=== PATIENT | female | born 1995 | race Caucasian/White ===

== ENCOUNTER 2020-07-11 13:41 | Emergency (ER) | payer OTHER, SELFPAY ==
[2020-07-11 13:46] VITALS: BP 168/79; PULSE 126; RESP 16; TEMP 36.7; O2SAT 99
--- NOTE | 2020-07-11 14:00 | W.ED.GENAD ---
Discharge Plan Disposition Patient Disposition: HOME Condition: Improving Discharge Details Clinical Impression: Back pain Primary Care Provider: Unknown,Unknown ED Provider: Gage [facility] Home Meds and New Rx's Prescriptions: New cephalexin 500 mg capsule 500 mg PO TID 7 Days Qty: 21 RF: 0 Continued COVID-19 vacc,mRNA(Moderna)-PF 100 mcg/0.5 mL suspension 0.5 ml IM ONCE Qty: 0.5 RF: 0 norethindrone ac-eth estradiol [07/18 (21)] 1-20 mg-mcg Tablet 1 tab PO DAILY RF: 0 Discharge Instructions Instructions: Back Pain (ED) Additional Instructions: We will ask our care management team to arrange a follow-up for you in [facility] clinic at [facility] or [facility]. Please take Keflex as prescribed. Light duty at work for 1 week. Please follow-up with physical therapy. May use Tylenol and/or ibuprofen as needed for pain. Return to the ER if you have a fever, vomiting, new abdominal pain, or any other acute concerns. 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 She presents for ongoing back pain despite recent treatment for urinary tract infection with Macrobid and 3 days of ciprofloxacin. She is afebrile, her pulse was initially elevated, with flank/back pain on palpation during exam. Differential diagnosis includes benign back strain, UTI, pyelonephritis. She also reports a history of pelvic venous congestion. IV placed, screening labs and urinalysis obtained, patient referred for CT images. CBC is reassuring, note of elevated platelets at 440, lactic acid normal. Chemistries normal, LFTs unremarkable, urine without evidence of persistent infection. CT shows pelvic venous congestion. No other acute findings. On reexamination there is some tenderness of the musculature of the back, somewhat augmented by spinal twist. Will consider either partially treated urinary tract infection versus musculoskeletal strain. Discussed with her that I do feel it is reasonable to pursue a course of Keflex. We will have her follow-up with [facility]. I will refer her for physical therapy and have her on light duty at work for 1 week. She is stable and appropriate for discharge to home. HPI General Mode of arrival: ambulatory. Date/Time Provider Initiated Documentation: 07/11/20 13:42. Limitations to Documentation: no limitations. Information obtained by: patient. History of Present Illness 24 year old F presents to the emergency department with the chief complaint of Back pain and urine symptoms, described as moderate, Quality is described as dull, and is localized to the pelvis. Patient reports no radiation. Patient started experiencing this day(s) and it has been intermittent. No relieving factors improve symptom(s), No exacerbating factors reported . Patient notes denies fever/chills and nausea/vomiting. Patient did receive the following treatments prior to arrival, none Related Data Home Medications Medication Instructions Recorded Confirmed cephalexin 500 mg PO TID 7 Days #21 cap 07/11/20 norethindrone ac-eth estradiol 1 tab PO DAILY 07/11/20 07/11/20 [07/18 ()] Previous Rx's Medication Instructions Recorded cephalexin 500 mg PO TID 7 Days #21 cap 07/11/20 Allergies Allergy/AdvReac Type Severity Reaction Status Date / Time No Known Allergies Allergy Unverified 07/11/20 13:50 General Stated Complaint: Urinary PAUL: 3 Review of Systems Narrative: No vaginal discharge or bleeding. No new sexual partners. Completed Macrobid and ciprofloxacin for UTI 2 weeks ago PFSH Social History Smoking/Tobacco Use Status: Never Smoking risk assessment performed?: Yes Alcohol Intake: current Alcohol Intake frequency: a few times a month Do you feel safe at home: Yes Do you feel safe in your relationship?: Yes Exam Narrative Exam Narrative: GEN: awake, alert, oriented 3. Pleasant, well groomed, interactive. HEAD: Normocephalic, atraumatic ENT: Mucous membranes moist, oropharynx unremarkable, External ear exam unremarkable EYES: PERRL, EOMI NECK: Full ROM, no RAJESH, no menigismus CHEST/RESP: Nontender, clear to auscultation bilateral, no wheeze/rhonchi/rales CARDIOVASCULAR: Regular and tachycardic, no murmur, rub raghav. 2+ Rad pulse bilateral ABDOMEN: Soft, mild suprapubic tenderness, no rebound, no mass. +Bowel sounds. Left flank tender to percussion EXT: Full ROM, no edema, no rash Neuro: Grossly normal neurologic exam, conversant, interactive. Psych: Speech fluent, thoughts congruent, affect normal Course Vital Signs Vital signs: Vital Signs Temperature 36.7 C 07/11/20 13:46 Pulse 126 H 07/11/20 13:46 Respiratory Rate 16 07/11/20 13:46 Blood Pressure 168/79 H 07/11/20 13:46 Pulse Oximetry 99 07/11/20 13:46 Temperature 36.7 C 07/11/20 13:46 Temperature Source Temporal Artery Scan 07/11/20 13:46 Pulse 126 H 07/11/20 13:46 Respiratory Rate 16 07/11/20 13:46 Respiratory Effort 07/11/20 13:52 Blood Pressure 168/79 H 07/11/20 13:46 Blood Pressure Position Sitting 07/11/20 13:46 Pulse Oximetry 99 07/11/20 13:46 Oxygen Delivery Method Room Air 07/11/20 13:46 Oxygen Flow Rate 0 07/11/20 13:46 Pain Level 5 07/11/20 13:46 Comment 07/11/20 13:46
[2020-07-11 14:11] LABS: Bilirubin Negative (Negative); Blood Negative (Negative); Clarity Clear (Clear); Glucose Negative (Negative); Ketones Negative (Negative); Leukocyte Esterase Negative (Negative); Nitrite Negative (Negative); Urobilinogen 0.2 EU/dL (Up TO 0.2)
[2020-07-11] MEDS: Ketorolac 15 MG/ML VIAL IVP (14:27)
[2020-07-11] MEDS: Normal Saline 1,000 ML 1000 ML IV (14:28)
[2020-07-11 14:29] LABS: Abs Immature Grans 0.03 10^3/uL (0.0-0.06); Absolute Basophil Count 0.03 10^3/uL (0.0-0.2); Absolute Eosinophil Count 0.04 10^3/uL (0.0-0.7); Absolute Lymphocyte Count 3.57 10^3/uL (1.2-3.4); Absolute Monocyte Count 0.45 10^3/uL (0.1-0.8); Absolute Neutrophil Count 6.21 10^3/uL (1.2-6.7); Basophils % 0.3; Eosinophils % 0.4; HCT 41.2 % (36.0-46.0); HGB 13.8 g/dL (11.2-15.7); Immature Grans % 0.3; Lactate 1.4 mmol/L (0.6-1.4); Lymphocytes % 34.6; MCH 30.3 pg (27.0-33.0); MCHC 33.5 % (32.0-36.0); MCV 90.4 fL (80-95); MPV 10.1 fL (8.0-11.0); Monocytes % 4.4; Nucleated RBC 0 %; Platelet Count 440 10^3/uL (130-400); RBC 4.56 10^6/uL (3.93-5.22); RDW 12.5 % (11.7-14.6); RDW-SD 41.7 fL; WBC 10.33 10^3/uL (4.4-10.8)
--- NOTE | 2020-07-11 14:30 | DI.CT_ITS ---
EXAM: CT ABDOMEN PELVIS W CLINICAL HISTORY: L flank pain, s/p uti/abx. TECHNIQUE: Imaging Protocol: Axial computed tomography images with coronal and sagittal reformatted images were created and reviewed CONTRAST MATERIAL: Intravenous: Omnipaque 100cc Oral: None COMPARISON: No exams were available for comparison FINDINGS: VISUALIZED LUNG BASES: No nodules nor pleural effusions evident. ABDOMEN: There is no ascites. LIVER: There are no obvious focal hepatic lesions evident . GALLBLADDER/BILIARY: No obvious gallbladder pathology. CBD is not dilated. PANCREAS: No evidence of pancreatic mass nor dilatation of the pancreatic duct. SPLEEN: Spleen is not enlarged. No obvious intrasplenic lesions. Splenic and portal veins are paten t. ADRENALS: There are no significant adrenal masses. KIDNEYS:No cysts evident. No solid renal masses. No calculi nor hydronephrosis.. ABDOMINAL AORTA: Abdominal aorta is not enlarged and there is no mzxtnazpdgzavhq-pdky-urjelb adenopat hy. ABDOMINAL WALL/GI: No evidence of significant anterior abdominal wall hernia. No bowel obstruction. PELVIS: GI: No evidence of appendicitis.No evidence of sigmoid diverticulitis. LYMPH NODES: There is no intrapelvic nor inguinal adenopathy. REPRODUCTIVE: There are dilated veins both sides the uterus, more so on the left side in these drain into a dilated left gonadal vein which itself drains into the preaortic left renal vein to the left o f center. URINARY BLADDER: No calculi nor obvious masses evident OSSEOUS: No significant osseous lesions. IMPRESSION: 1. No significant renal findings. 2. Dilated periuterine veins, as described above. Correlation a clinical history of pelvic congestio n symptomatology is recommended. 3. No appendicitis. No diverticulitis. No free fluid. 4. Visualized lung bases are clear. RADIATION DOSE DELIVERED: 526.98mGy.cm Total DLP DATA REPOSITORY: All CT scans at this facility are submitted to the National Radiology Data Registry (NRDR) Dose Index Registry (DIR) with the [employer] (ACR). RADIATION OPTIMIZATION: All CT scans at this facility use at least one of these dose optimization te chniques: automated exposure control; mA and/or kV adjustment per patient size (includes targeted exa ms where dose is matched to clinical indication); or iterative reconstruction.
[2020-07-11 14:52] LABS: ALT 18 U/L (14-59); AST 14 U/L (15-37); Albumin 3.9 g/dL (3.4-5.0); Alkaline Phosphatase 46 U/L (46-116); Anion Gap 9.4 mmol/L (3-11); BUN 11 mg/dL (7-18); Bilirubin, Total 0.5 mg/dL (0.2-1.0); CO2 24.6 mmol/L (21.0-32.0); Chloride 105 mmol/L (98-107); Glucose 93 mg/dL (74-106); Sodium 139 mmol/L (136-145); Total Protein 8.1 g/dL (6.4-8.2)
[2020-07-11 16:38] VITALS: BP 139/88; PULSE 105; RESP 18; TEMP 36.8; O2SAT 100
--- NOTE | 2020-07-11 16:49 | NUR.NOTE ---
sent to care management for referal to [facility] director of strategic sourcing if not asvailable here at [facility] director of strategic sourcing and faxed Trevor Mckenna Note:
--- NOTE | 2020-07-12 11:03 | CMPROGNOTE_ITS ---
- If Service Date Differs Date of service: 07/12/20 Time of Service: 11:03 Care Management Progress Note Sangeeta is seen in the ED on 07/11/20 for pelvic congestion. At the request of Dr. Heart, ED provider, EDITH coordinates a referral to [facility] to assist Sangeeta in obtaining a follow up appointment and in establishing care with ob-gynecologist.
== END 2020-07-11 16:32 | disposition home or self-care (01) ==
PROVIDERS: Emergency Provider Emergency Medicine
DX: M54.5 Low back pain (principal); R30.0 Dysuria
CPT/HCPCS: 36415; 80053; 81025; 96361; 96374; 99285; 74177; 81003; 83605; 85025; 99284; J1885

== ENCOUNTER 2023-06-30 03:14 | Outpatient (CLI) | payer MEDICAID, SELFPAY ==
[2023-06-30 11:42] LABS: Panorama Kit Sent via Fed Ex
[2023-06-30 12:06] LABS: Abs Immature Grans 0.02 10^3/uL (0.0-0.06); Absolute Basophil Count 0.03 10^3/uL (0.0-0.2); Absolute Eosinophil Count 0.05 10^3/uL (0.0-0.7); Absolute Lymphocyte Count 2.25 10^3/uL (1.2-3.4); Absolute Monocyte Count 0.47 10^3/uL (0.1-0.8); Absolute Neutrophil Count 6.78 10^3/uL (1.2-6.7); Basophils % 0.3; Eosinophils % 0.5; HGB 12.7 g/dL (11.2-15.7); Immature Grans % 0.2; Lymphocytes % 23.4; MCH 30.8 pg (27.0-33.0); MCHC 33.4 % (32.0-36.0); MCV 92 fL (80-95); MPV 10.3 fL (8.0-11.0); Monocytes % 4.9; Neutrophils % 70.7; Platelet Count 346 10^3/uL (130-400); RBC 4.13 10^6/uL (3.93-5.22); RDW-SD 43.8 fL
[2023-07-01 10:26] LABS: Varicella IgG Antibody Positive (See Note)
[2023-07-01 10:27] LABS: Rubella IgG Ab (UVM) Positive (See Note)
[2023-07-01 11:43] LABS: Hepatitis B Surface Ag Negative (Negative)
[2023-07-01 12:27] LABS: HIV-1/2 Ag & Ab Screen Negative (Negative)
[2023-07-01 12:37] LABS: Hepatitis C Ab w Rflx HCV PCR Negative (Negative)
[2023-07-02 16:32] LABS: Syphilis IgG w/Reflex Nonreactive (Nonreactive)
[2023-07-13 12:53] LABS: Result Summary NEGATIVE; Specimen WB Whole Blood
== END 2023-06-30 03:15 | disposition home or self-care (01) ==
PROVIDERS: Visit Provider Advanced Practice Midwife
DX: Z34.91 Encounter for supervision of normal pregnancy, unspecified, first trimester
CPT/HCPCS: 36415; 81220; 81222; 86787; 86803; 86850; 86900; 86901; 87340; 87389; 85025; 86762; 86780

== ENCOUNTER 2023-06-30 11:18 | Outpatient (REF) | payer MEDICAID, SELFPAY ==
--- NOTE | 2023-06-30 11:00 | PAPFT_PTH ---
PATIENT: Sangeeta Reed LOC: [facility] U#:[id number] AGE/SX: 27/F ROOM: RE06/30/[address]: Gabriella House CNM : 1995 BED: DIS: 06/30/2023 SPEC #: [id number] RECD: 06/30/23 12:59 STATUS: RADHA RERonaldo #: [id number] ELISABETH: 06/30/23 11:[address]: Gabriella House DEPT: [facility] Cytology RECD BY: Deedee Parker ENTERED: 06/30/23 13:00 SP TYPE: PAPFT OTHR DR: Unknown,Unknown Tissues: 1 - CX/ENDOCX FOR PAP SMEARS Procedures: PAP THIN PREP/UVM Screening HPV DNA PROBE Comments: [id number] (HPV 16 & 18/45) (CHLAMYDIA/GC)
[2023-06-30 15:59] LABS: *AMPHETAMINES SCREEN URINE Negative (Negative); *BARBITURATES SCREEN URINE Negative (Negative); *BENZODIAZEPINES SCREEN URINE Negative (Negative); Cannabinoids THC Negative (Negative); Cocaine Screen,Urine Negative (Negative); METHADONE URINE SCREEN Negative (Negative); OPIATES URINE SCREEN Negative (Negative)
[2023-06-30 16:00] LABS: Tricyclic Antidepressants Negative (Negative)
[2023-07-01 15:44] LABS: Chlamydia Result Negative (Negative); GC Result Negative (Negative)
[2023-07-04 13:22] LABS: Buprenorphine Negative ng/mL (Cutoff: 5.0); Norbuprenorphine Negative ng/mL (Cutoff: 2.5)
== END 2023-06-30 11:19 | disposition home or self-care (01) ==
LOC: LBN 11:18
PROVIDERS: Visit Provider Advanced Practice Midwife
DX: Z34.91 Encounter for supervision of normal pregnancy, unspecified, first trimester (principal)
CPT/HCPCS: 80307; 80348; 87491; 87591; 88142; 87086; 87624

== ENCOUNTER → 2023-08-26 00:33 | Outpatient (CLI) | payer MEDICAID, SELFPAY ==
--- NOTE | 2023-08-26 07:45 | DI.US_ITS ---
Exam(s) US OB 2-3 TRIMESTER EXAM: US OB 2-3 TRIMESTER CLINICAL HISTORY: survey,z34.90. TECHNIQUE: Transabdominal obstetrical ultrasound performed. COMPARISON: US POCUS EXAM from 05/29/2023 FINDINGS: Number of fetuses: 1 position: VARIED heart rate: 134bpm Placental location: There is a grade 1 anterior placenta. The placental tip is 5.7 cm from the inter nal os. No evidence of previa. Amniotic fluid index: Amount of fluid is within normal limits. ANATOMICAL SURVEY: Within normal limits. BIOMETRIC DATA: BPD: 4.27cm, 18weeks 6days HC: 16.91cm, 19weeks 4days AC: 17.23cm, 22weeks 1day FL: 3.02cm, 19weeks 2days Cisterna magna: 3.1mm Cerebellum: 1.69cm Lateral ventricle: 0.5 cm EFW: 369.73g, 0.84lb, 92.2% Composite Age: 20weeks KAYKAY: 01/13/2024 Heart Rate: 134bpm ANATOMICAL SURVEY: Four-chambered heart: Unremarkable. RVOT: Unremarkable. LVOT: Unremarkable. Left-sided stomach: Unremarkable. urinary bladder: Unremarkable. Bilateral kidneys: Unremarkable. Three-vessel cord: Unremarkable. Cord insertion: Unremarkable. Posterior fossa: Unremarkable. ventricles: Unremarkable. nose/lips: Unremarkable. Palate: Unremarkable. spine: Unremarkable. Two arms and two legs: Unremarkable. IMPRESSION: 1. Single live intrauterine gestation as above. 2. Normal anatomic survey. DATA REPOSITORY:
== END ==
PROVIDERS: Visit Provider Advanced Practice Midwife
DX: Z34.92 Encounter for supervision of normal pregnancy, unspecified, second trimester (principal); Z3A.20 20 weeks gestation of pregnancy
CPT/HCPCS: 76805

== ENCOUNTER 2023-10-23 01:06 | Outpatient (CLI) | payer MEDICAID, SELFPAY ==
[2023-10-23 09:54] LABS: HCT 37.7 % (36.0-46.0); HGB 12.3 g/dL (11.2-15.7); MCH 31.9 pg (27.0-33.0); MCHC 32.6 % (32.0-36.0); MCV 98 fL (80-95); MPV 10.3 fL (8.0-11.0); Platelet Count 253 10^3/uL (130-400); RBC 3.86 10^6/uL (3.93-5.22); RDW 13.5 % (11.7-14.6); RDW-SD 48.1 fL; WBC 10.64 10^3/uL (4.4-10.8)
[2023-10-23 10:03] LABS: Glucose,1 Hr (Glucola) 84 mg/dL (80-140)
== END 2023-10-23 01:07 | disposition home or self-care (01) ==
LOC: LBO 01:06
PROVIDERS: Visit Provider Advanced Practice Midwife
DX: Z34.93 Encounter for supervision of normal pregnancy, unspecified, third trimester (principal)
CPT/HCPCS: 36415; 82950; 85027

== ENCOUNTER 2023-12-08 10:26 | Outpatient (CLI) | payer MEDICAID, SELFPAY ==
[2023-12-08 11:45] VITALS: BP 112/56; PULSE 81; TEMP 36.1
[2023-12-08 11:54] VITALS: BP 112/56; PULSE 74
--- NOTE | 2023-12-08 14:23 | W.OBNST ---
Date of service: 12/08/23 Time of Service: 14:23 NST Evaluation Reason for NST Reasons for Nonstress Test: LABOR Gestational Age Gestational Age in Weeks and Days: 34 Weeks and 4Days Test and Monitor Explained Test/Monitor Explained: Test Explained, Monitor Explained and Patient Verbalized Understanding Vital Signs Blood Pressure: 112/56 Pulse: 81 Temperature: 97 F Urine Results Urine Protein: Negative Urine Ketones: Negative Urine Glucose: Negative Urine Blood: Negative NST Information Date on Monitor: 12/08/23 Time on Monitor: 11:52 Date off Monitor: 12/08/23 Time off Monitor: 12:45 Total Time on Monitor: 53 NST Interventions: PO Hydration Contraction Frequency: 2-6 NST Evaluation Patient States Movement: Present FHR Baseline: 130 Variability: Moderate 6-25 bpm Accelerations: 15x15 Decelerations: None NST Results: Reactive Note Ultrasound Done: N/A. NST Note Note: Cvx closed and thick, no labor, nml vaginal mucous Advised to reduce work hours from 12 to 8 hrs at a time tylenol, rest, stretching for back pain NST Reviewed and Verified by: Gabriella House
[2023-12-08 14:24] VITALS: BP 112/56; PULSE 81; TEMP 36.1
== END 2023-12-08 13:05 ==
LOC: BCD 10:35 → OBS 10:37
PROVIDERS: Visit Provider Advanced Practice Midwife
DX: O47.03 False labor before 37 completed weeks of gestation, third trimester (principal); Z3A.34 34 weeks gestation of pregnancy
CPT/HCPCS: 59025

== ENCOUNTER 2023-12-17 16:25 | Outpatient (REF) | payer MEDICAID, SELFPAY | END 2023-12-17 16:26 | disposition home or self-care (01) | LOC: LBN 16:25 | PROVIDERS: Visit Provider Advanced Practice Midwife | DX: Z34.93 Encounter for supervision of normal pregnancy, unspecified, third trimester (principal); Z36.85 Encounter for antenatal screening for Streptococcus B; Z3A.35 35 weeks gestation of pregnancy | CPT/HCPCS: 87081 ==

== ENCOUNTER 2024-01-08 10:57 | Outpatient (CLI) | payer MEDICAID, SELFPAY ==
[2024-01-08 11:04] VITALS: BP 129/80; PULSE 75; TEMP 36.7
[2024-01-08 11:08] VITALS: BP 129/80; PULSE 75
--- NOTE | 2024-01-08 12:04 | PDOC.NST_ITS ---
Date of service: 01/08/24 Time of Service: 12:04 NST Evaluation Reason for NST Reasons for Nonstress Test: OTHER, SEE COMMENT Reason for NST Other: Rule out labor Gestational Age Gestational Age in Weeks and Days: 39 Weeks and 0Days Test and Monitor Explained Test/Monitor Explained: Test Explained and Monitor Explained Vital Signs Blood Pressure: 129/80 Pulse: 75 Temperature: 98.1 F Urine Results Urine Protein: Negative Urine Ketones: Negative Urine Glucose: Negative Urine Blood: Negative NST Information Date on Monitor: 01/08/24 Time on Monitor: 11:02 Date off Monitor: 01/08/24 Time off Monitor: 11:34 Total Time on Monitor: 32 NST Interventions: PO Hydration Contraction Frequency: q10-20 NST Evaluation Patient States Movement: Present FHR Baseline: 125 Variability: Moderate 6-25 bpm Accelerations: 15x15 Decelerations: None NST Results: Reactive Note Ultrasound Done: N/A. NST Note Note: cvx 1/60% posterior, firm, cephalic -3, intact membranes discharged home, f/up in 1 wk in [facility] sx labor reviewed NST Reviewed and Verified by: Gabriella House
[2024-01-08 12:05] VITALS: BP 129/80; PULSE 75; TEMP 36.7
== END 2024-01-08 11:45 ==
LOC: BCD 10:58 → OBS 11:02
PROVIDERS: Visit Provider Advanced Practice Midwife
DX: O47.1 False labor at or after 37 completed weeks of gestation (principal); Z3A.39 39 weeks gestation of pregnancy
CPT/HCPCS: 59025

== ENCOUNTER 2024-01-11 16:37 | Outpatient (CLI) | payer MEDICAID, SELFPAY ==
[2024-01-11 17:22] VITALS: BP 121/74; PULSE 76; TEMP 36.9
[2024-01-11 17:28] VITALS: BP 121/74; PULSE 76
--- NOTE | 2024-01-12 03:26 | W.OBNST ---
Date of service: 01/11/24 Time of Service: 19:00 NST Evaluation Reason for NST Reasons for Nonstress Test: OTHER, SEE COMMENT Reason for NST Other: DFM, early labor Gestational Age Gestational Age in Weeks and Days: 39 Weeks and 4Days Test and Monitor Explained Test/Monitor Explained: Test Explained, Monitor Explained and Patient Verbalized Understanding Vital Signs Blood Pressure: 121/74 Pulse: 76 Temperature: 98.4 F Urine Results Urine Protein: Negative Urine Ketones: Negative Urine Glucose: Negative Urine Blood: Negative NST Information Date on Monitor: 01/11/24 Time on Monitor: 17:27 Date off Monitor: 01/11/24 Time off Monitor: 18:14 Total Time on Monitor: 47 NST Evaluation Patient States Movement: Present FHR Baseline: 140 Variability: Moderate 6-25 bpm Accelerations: 15x15 Decelerations: None NST Results: Reactive Note Ultrasound Done: N/A. NST Note Note: cvx 1-2/90% anterior, vtx -2, intact membranes to home to rest, labor sx reviewed NST Reviewed and Verified by: Gabriella House
[2024-01-12 03:27] VITALS: BP 121/74; PULSE 76; TEMP 36.9
== END 2024-01-11 18:24 ==
LOC: BCD 16:37 → OBS 17:20
PROVIDERS: Visit Provider Advanced Practice Midwife
DX: O36.8130 Decreased fetal movements, third trimester, not applicable or unspecified (principal); Z3A.39 39 weeks gestation of pregnancy
CPT/HCPCS: 59025

== ENCOUNTER 2024-01-12 03:44 | Inpatient (IN) | payer MEDICAID, SELFPAY ==
[2024-01-12 03:30] VITALS: BP 129/73; PULSE 58; RESP 16; TEMP 36.6; O2SAT 100
--- NOTE | 2024-01-12 03:47 | HPE_ITS ---
Date of service: 01/12/24 Time of Service: 03:47 Assessment and Plan Assessment and plan (1) Uterine contractions: Status: Acute Assessment and plan: A: 28 yo G1 @ 39+4 wks, early labor, need for pain management GBS neg, Rh+, Rub/[place] Immune, intact membranes Category 1 tracing, low risk for SD & PPH Anxiety treated with sertraline P: Admit to BC, CBC, T&S Offered shower, nitrous, nubain for therapeutic rest, Expectant management, intermittent FHT per guidelines Additional comfort measures discussed, anticipate OB-HPI Labor/Delivery History of Present Illness Reason for Visit: Early labor at term Chief Complaint: Uterine Contractions (Contractions have continued through the night, unable to sleep, increasingly painful and frequent. No bleeding, no vomiting, no ROM.). KAYKAY Calculator Estimated Delivery Date Method Current WG Current Estimate 01/15/24 LMP (Certain) 39w 4d Other Estimates 01/14/24 Ultrasound #1 39w 5d History of Present Expected Delivery Route/Plan - CNM FOB/boyfriend - Alexandre Correa (first child) BG GBS negative Specific Issues/Plan 1. cfDNA result is low risk x5, female, CF screen-neg, declines AFP. 2. PAP result nml, HPV+, neg genotype 16, 18/45, discuss w/pt, repeat 1 yr. 3. Low back pain - [facility] 4. Tdap given 11/06/23 5. Heartburn - taking omeprazole PRN. Assessment: History Reviewed & Current Review of Systems Narrative: ROS completed and noncontributory other than HPI PFSH All Active Problems (Updated 01/12/24 @ 04:00 by Gabriella House) Uterine contractions (Acute) Low back pain (Acute) (Acute) Anxiety (Chronic) Rx Propranolol and Zoloft effective. Medical History (Updated 01/12/24 @ 04:00 by Gabriella House) Encounter for screening for other viral diseases Positive test 05/13/23, Confirmed at [facility]. Social History (Updated 05/13/23 @ 15:10 by Lisa Gilmore MD) Smoking/Tobacco Use Status: Never Smoking risk assessment performed?: Yes Alcohol Intake: current Alcohol Intake frequency: a few times a month Drug use: Never Household members: significant other and other Details: building a house with Alexandre Correa.Linepainter, [employer]. 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 Do you feel safe at home: Yes Do you feel safe in your relationship?: Yes History History 1 Para 0 Hx # Term Pregnancies 0 Multiple births 0 Hx # Pregnancies 0 Ectopic pregnancies 0 AB induced 0 Hx Number of Living Children 0 AB spontaneous 0 Meds Allergies and Home Medications Allergies Allergy/AdvReac Type Severity Reaction Status Date / Time No Known Allergies Allergy Verified 01/08/24 10:21 Home Medications ?Medication ?Instructions ?Recorded ?Confirmed ?Type vitamin #56-iron 35 mg 1 cap PO DAILY 05/13/23 01/12/24 History and 5 mg-folic acid 1 mg-dha capsule omeprazole 20 mg capsule,delayed 20 mg PO BID PRN acid reflux #90 09/25/23 01/12/24 Rx release caps sertraline 25 mg tablet (Zoloft) 37.5 mg (1.5 x 25 mg) PO DAILY #90 12/30/23 01/12/24 Rx tabs Exam Physical Exam Vital Signs Reviewed: Yes Constitutional Constitutional: moderate distress, average body habitus and cooperative Detailed Labor and Delivery Exam Dilation: 2 Effacement (%): 90 station: -2 Position: LOP Cervix position: anterior Consistency: medium SAN Score(Cervical Ripeness Score): 8 Amniotic Membrane Status: Intact Contraction Frequency(min): irregular Contraction Duration(sec): 50-60 Contraction Intensity: Moderate Fetus A Heart Rate Baseline: 120 Monitor Accelerations: 15 X 15 Monitor Decelerations: None Variability: Moderate (6-25 BPM) Categories: Category I Est. Weight: 7 lb 9.695 oz Est. Weight: 3450 gms HEENT Exam HEENT Exam: Normal Neck Exam Neck Exam: Normal Chest/Brest/Axilla Exam Chest Exam: Normal Breast Exam Breast Exam: Not Done Respiratory Exam Respiratory Exam: Normal Cardiovascular Exam Cardiovascular Exam: Normal Abdominal Exam Abdominal Exam: Normal (gravid, soft, nontender) Rectal Exam Rectal Exam: Normal Exam Exam: Normal Extremities Exam Extremities Exam: Normal Back/Spine/Pelvis Exam Back Exam: Normal Pelvis Adequate: Yes Skin Exam Skin Exam: Normal Neurological Exam Neurological Exam: Normal Psychiatric Exam Psychiatric Exam: Normal Results Results Group Beta Strep: Negative Blood Type: A+ Rubella Status: Immune Varicella Immunity: Immune Risk Assessment Risk for Shoulder Dystocia Historical/Initial OB: NEGATIVE FOR: Pelvic Abnormality, Pre- BMI>30, Pr evious Shoulder Dystocia or Previous Macrosomia 36 Weeks: NEGATIVE FOR: Current Gestational DM, EFW>4500gms or Maternal Weight Gain>40lbs Increased Risk?: Yes Delivery Plan @ 36wks: NVD planned Risk for Pre-Eclampsia Date Initiated/Initials: not indicated, jk Yes, if one or more: NEGATIVE FOR: Hx Pre-E/Gest HTN, Chronic HTN, Multiple Gestation, Pre-gestational DM, Renal Disease, Systemic Lupus or APA Syndrome Yes, if 2 or more: POSITIVE FOR: Nulliparity; NEGATIVE FOR: Age>= 35 yrs, >10yr btwn pregnancies, BMI>30, ethinicty, Mother/Sister w/ Pre-E or Previous IUGR Risk for Post- Hemorrhage Initial: NEGATIVE FOR: Multiple Gestation, Previous PPH, Known Clotting Deficiency, Grand Multiparity or Anticoagulation 36 Weeks: NEGATIVE FOR: Anemia, hgb<10, Low platelets(thrombocytopenia), Gestational HTN or Pre-E, Polyhydraminios or EFW>4500gms At Risk?: No Counseled re: Active Management: Yes (accept active management of third stage. FLORES) Date/Initials: 12/17/23 Risks Reviewed Risks Reviewed Upon Admission: Yes
[2024-01-12 04:00] VITALS: BP 129/73; PULSE 58; TEMP 36.6
[2024-01-12 04:21] LABS: HCT 34.8 % (36.0-46.0); HGB 11.9 g/dL (11.2-15.7); MCH 32.9 pg (27.0-33.0); MCHC 34.2 % (32.0-36.0); MCV 96 fL (80-95); MPV 11.6 fL (8.0-11.0); Platelet Count 206 10^3/uL (130-400); RBC 3.62 10^6/uL (3.93-5.22); RDW 12.4 % (11.7-14.6); RDW-SD 43.7 fL; WBC 14.17 10^3/uL (4.4-10.8)
[2024-01-12] MEDS: Ondansetron 4 MG/2 ML VIAL IM (06:38)
[2024-01-12] MEDS: Nalbuphine 10 MG/ML AMP IM (06:39)
[2024-01-12 08:04] VITALS: BP 104/59; BP 93/50; PULSE 62; PULSE 63; RESP 16; TEMP 36.6
[2024-01-12 08:07] VITALS: PULSE 57; O2SAT 99
--- NOTE | 2024-01-12 09:13 | W.PM.OBNL1 ---
Date of service: 01/12/24 Time of Service: 09:14 Assessment and Plan Assessment and plan (1) Uterine contractions: Status: Acute Assessment and plan: 1. Continue present management, allow to sleep until 1200 and reassess unless patient wakes prior to that time 2. Recent FHR tracing CAT Maddi TANNER Objective Abnormal lab results 01/12/24 Range/Units 04:05 WBC 14.17 H (4.4-10.8) 10^3/uL RBC 3.62 L (3.93-5.22) 10^6/uL Hct 34.8 L (36.0-46.0) % MCV 96 H (80-95) fL MPV 11.6 H (8.0-11.0) fL Temp Pulse Resp BP Pulse Ox 97.9 F 57 L 16 104/59 L 99 01/12/24 08:04 01/12/24 08:07 01/12/24 08:04 01/12/24 08:04 01/12/24 08:07 Laboratory Results WBC 14.17 10^3/uL (4.4-10.8) H 01/12/24 04:05 RBC 3.62 10^6/uL (3.93-5.22) L 01/12/24 04:05 Hgb 11.9 g/dL (11.2-15.7) 01/12/24 04:05 Hct 34.8 % (36.0-46.0) L 01/12/24 04:05 MCV 96 fL (80-95) H 01/12/24 04:05 MCH 32.9 pg (27.0-33.0) 01/12/24 04:05 MCHC 34.2 % (32.0-36.0) 01/12/24 04:05 RDW 12.4 % (11.7-14.6) 01/12/24 04:05 Plt Count 206 10^3/uL (130-400) 01/12/24 04:05 MPV 11.6 fL (8.0-11.0) H 01/12/24 04:05 ABO/Rh A Positive 01/12/24 04:05 Antibody Screen NEGATIVE 01/12/24 04:05 Subjective Interval history since last seen: Observed sleeping. Left undisturbed. Will allow patient to sleep until 1200 and then reassess unless she wakes prior to that time. Recent tracing CAT I and patient had reported relief from discomfort at that time to nursing. KH Results Hemoglobin/Hematocrit: Hgb 11.9 g/dL (11.2-15.7) 01/12/24 04:05 Hct 34.8 % (36.0-46.0) L 01/12/24 04:05 Abnormal Lab Findings: Abnormal Labs 01/12/24 04:05 WBC 14.17 H RBC 3.62 L Hct 34.8 L MCV 96 H MPV 11.6 H
[2024-01-12 10:51] VITALS: BP 113/71; PULSE 66
[2024-01-12 10:52] VITALS: PULSE 70; O2SAT 97
--- NOTE | 2024-01-12 10:52 | ANES.PREOP_ITS ---
General Info Date of Service Date Performed: 01/12/24 Height: 5 ft 2 in Weight: 65.884 kg Body Mass Index (BMI): 26.5 Meds Allergies and Home Medications Allergies Allergy/AdvReac Type Severity Reaction Status Date / Time No Known Allergies Allergy Verified 01/08/24 10:21 Home Medication ?Medication ?Instructions ?Recorded vitamin #56-iron 35 mg 1 cap PO DAILY 05/13/23 and 5 mg-folic acid 1 mg-dha capsule omeprazole 20 mg capsule,delayed 20 mg PO BID PRN acid reflux #90 09/25/23 release caps sertraline 25 mg tablet (Zoloft) 37.5 mg (1.5 x 25 mg) PO DAILY #90 12/30/23 tabs Current Visit Medications: Current Medications Generic Name Dose Route Start Last Admin Trade Name Freq PRN Reason Stop Dose Admin Omeprazole 20 mg 01/12/24 21:30 Omeprazole 20 Mg Capcr PO BID PRN PRN acid reflux Sertraline HCl 37.5 mg 01/12/24 21:30 Sertraline 25 Mg Tab PO DAILY [facility] Active Problems Active Problems: Problem Status Onset Code Uterine contractions Acute O47.9 Low back pain Acute M54.50 Acute Z34.90 Anxiety Chronic F41.9 Medical History Medical History (Updated 01/12/24 @ 04:00 by Gabriella House) Encounter for screening for other viral diseases Positive test 05/13/23, Confirmed at [facility]. Tobacco Smoking/Tobacco Use Status: Never Alcohol Alcohol Intake: current Alcohol intake frequency: a few times a month Substance Use Substance use: Never Prental History History 2 1 Para 0 Hx # Term Pregnancies 0 Multiple births 0 Hx # Pregnancies 0 Ectopic pregnancies 0 AB induced 0 Hx Number of Living Children 0 AB spontaneous 0 Vital Signs and Lab Results Vital Signs Most Recent Vital Signs in EMR: Most Recent Vital Signs Temp Pulse Resp BP Pulse Ox 36.6 C 66 16 113/71 99 01/12/24 08:04 01/12/24 10:51 01/12/24 08:04 01/12/24 10:51 01/12/24 08:07 Lab Results 01/12/24 04:05 Blood Type / Crossmatch: 2 Antibody Screen NEGATIVE 01/12/24 Complete Blood Count: 2 White Blood Count 14.17 10^3/uL (4.4-10.8) H 07/16/24 04:05 Red Blood Count 3.62 10^6/uL (3.93-5.22) L 01/12/24 04:05 Hemoglobin 11.9 g/dL (11.2-15.7) 01/12/24 04:05 Hematocrit 34.8 % (36.0-46.0) L 01/12/24 04:05 Platelet Count 206 10^3/uL (130-400) 01/12/24 04:05 Complete Metabolic Panel: 2 No Data to Display Liver Function Panel: 2 No Data to Display Coagulation Panel: 2 No Data to Display Cardiac Panel: 2 No Data to Display Arterial Blood Gas: 2 No Data to Display Venous Blood Gas: 2 No Data to Display Pancreas Panel: 2 No Data to Display Thyroid Panel: 2 No Data to Display Infectious Disease: 2 No Data to Display Blood Cultures: 2 No Data to Display Toxicology Panel: 2 No Data to Display Panel: 2 No Data to Display Anesthesia Assessment and Plan Anesthesia History Personal History: No History of General Anesthesia Family History: No Family History of Anesthesia Complications Exercise Tolerance Exercise Tolerance: Metabolic Equivalents>4 Pertinent Negatives Pertinent Negatives: No Symptoms of GERD, No Major Cardiovascular Symptoms or Complaints and No Major Pulmonary Symptoms or Complaints Cardiac & Pulmonary Exam Cardiac Exam: Normal S1/S2 Heart Sounds Pulmonary Exam: Clear Bilateral Breath Sounds Implantable Cardiac Device Does patient have a Pacemaker or an ICD?: No Airway Exam Known Difficult Airway: No Mallampati Class: 2 Mouth Opening: Normal (> 3cm) Thyromental Distance: Greater than 3 cm Neck Range of Motion: Full ROM Neck Circumference: Normal Teeth Condition: Normal Dentition ASA Classification ASA Score: ASA 2 Emergency Case?: No NPO Status NPO Status: Full Stomach Status Status: Confirmed Anesthesia Plan Resuscitation Status: Full Code Anesthesia Technique: Epidural Anesthesia Airway Planned: Natural Airway Pain Management: Epidural Monitors Used: Standard Monitors
[2024-01-12 10:55] VITALS: BMI 26.5
--- NOTE | 2024-01-12 11:21 | DSE_ITS ---
Date of service: 01/12/24 Time of Service: 11:21 DS: Diagnosis Discharge Diagnosis (1) Uterine contractions: Status: Acute Asessment and Plan: 1. No cervical changes over night and status post therapeutic rest with Nubain. 2. Irregular contractions noted but tolerating well 3. Reassuring status 4. Options of augmentation/induction of labor for maternal request and expectant management with discharge to home reviewed. Risks and benefits of each are reviewed. Sangeeta has opted to go home and to keep appointment tomorrow or call instrumentation technologist onion farmer as needed prior to that time. 5. Signs of labor reviewed. Discharge Plan Disposition Patient Disposition: Home Condition: Good Discharge Details Reason For Visit: Early labor at term Admit Date/Time: 01/12/24 03:44 Admit Provider: Gabriella House Attending Provider: Gabriella House Primary Care Provider: Unknown,Unknown Hospital Course Hospital Course: prodromal labor with good rest after medication with Nubain. No cervical change after sleep period. Patient requested information related to induction VS expectant management. I have reviewed both options and risks and benefits to each. I also reviewed that she is a healthy young woman, with healthy and reassuring tracings and that there is no medical indication to induction at this time. She has had opportunity to meet with BRANCH ACCOUNT MANAGER and have questions asked about epidural as well. At this time she has opted for expectant management and will be discharged to home to return with active labor or as needed. Home Meds and New Rx's Prescriptions: Continued omeprazole 20 mg capsule,delayed release(DR/EC) 20 mg PO BID PRN (Reason: acid reflux) Qty: 90 2RF PNV #[id number] acid-dha 35 mg iron-5 mg iron-1 mg capsule 1 cap PO DAILY sertraline [Zoloft] 25 mg tablet 37.5 mg PO DAILY Qty: 90 0RF Discharge Instructions Activity:: Activity as Tolerated Equipment/Supplies:: No Equipment Needed Diet:: As Tolerated Discharge Orders Discharge Orders: Discharge Order (Routine); Ordered 01/12/24 Ordered By: Armida Savage OB:DS Summary Summary Procedures: discharged as antepartum patient. Contraception Discussed Contraception Discussed: Yes, Status at Discharge Functional status at discharge: independent ambulation Overall status at discharge: patient is back to baseline Mental Status: mental status grossly normal Speech and Movement: speech and movement normal Mood: anxious mood (reviewed signs of labor) Affect: normal affect Quality:SDOH Health Related Social Needs: No Data to Display Exam Physical Exam Vital signs: Temp Pulse Resp BP Pulse Ox 97.9 F 70 16 113/71 97 01/12/24 08:04 01/12/24 10:52 01/12/24 08:04 01/12/24 10:51 01/12/24 10:52 Vital Signs Reviewed: Yes Constitutional Constitutional: no acute distress and average body habitus HEENT Exam HEENT Exam: Normal Neck Exam Neck Exam: Not Done Respiratory Exam Respiratory Exam: Normal Cardiovascular Exam Cardiovascular Exam: Normal Abdominal Exam Comments: gravid uterus, size equals dates Rectal Exam Rectal Exam: Not Done Exam Comments: normal Extremities Exam Extremity Exam: Normal Back/Spine/Pelvis Exam Back Exam: Normal Skin Exam Skin Exam: Normal Neurological Exam Neurological Exam: Normal Psychiatric Exam Psychiatric Exam: Normal (mild anxiety related to labor and pain of labor) PFSH All Active Problems Uterine contractions (Acute) Low back pain (Acute) (Acute) Anxiety (Chronic) Rx Propranolol and Zoloft effective. Medical History Encounter for screening for other viral diseases Positive test 05/13/23, Confirmed at [facility]. Social History Smoking/Tobacco Use Status: Never Smoking risk assessment performed?: Yes Alcohol Intake: current Alcohol Intake frequency: a few times a month Drug use: Never Household members: significant other and other Details: building a house with Alexandre Correa.Line, [place]. 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 Do you feel safe at home: Yes Do you feel safe in your relationship?: Yes History History 1 Para 0 Hx # Term Pregnancies 0 Multiple births 0 Hx # Pregnancies 0 Ectopic pregnancies 0 AB induced 0 Hx Number of Living Children 0 AB spontaneous 0 DS: Data Vitals/I&O Vitals and I&O: Vital Signs Temperature 97.9 F 01/12/24 08:04 Temperature 97.9 F 01/12/24 04:00 Temperature Source Oral 01/12/24 08:04 Pulse 70 01/12/24 10:52 Pulse 58 01/12/24 04:00 Pulse Rhythm Regular 01/12/24 08:00 Respiratory Rate 16 01/12/24 08:04 Blood Pressure 113/71 01/12/24 10:51 Blood Pressure 129/73 01/12/24 04:00 Blood Pressure Mean 91 01/12/24 03:30 Pulse Oximetry 97 01/12/24 10:52 Oxygen Delivery Method Room Air 01/12/24 02:30 Oxygen Flow Rate 0 01/12/24 02:30 Pain Level 7 01/12/24 06:39 Intake & Output 01/11/24 01/11/24 01/12/24 11:59 23:59 11:59 Output Total 500 / 500 Balance -500 / -500 Weight 145 lb 3.99 oz Output: Urine 500 / 500 Other: Urine Color Yellow Urine Appearance Clear Urine Odor None Voiding Methods Toilet Data Completed and Pending Labs on day of discharge: Labs from last 24 hours 01/12/24 04:05 WBC 14.17 H RBC 3.62 L Hgb 11.9 Hct 34.8 L MCV 96 H MCH 32.9 MCHC 34.2 RDW 12.4 Plt Count 206 MPV 11.6 H ABO/Rh A Positive Antibody Screen NEGATIVE
== END 2024-01-12 11:30 | disposition home or self-care (01) | DRG 833 ==
PROVIDERS: Admitting Provider Advanced Practice Midwife; Visit Provider Advanced Practice Midwife
DX: O47.03 False labor before 37 completed weeks of gestation, third trimester (principal); Z3A.39 39 weeks gestation of pregnancy; O99.613 Diseases of the digestive system complicating pregnancy, third trimester; R12 Heartburn; M54.50 Low back pain, unspecified; O26.893 Other specified pregnancy related conditions, third trimester; O99.343 Other mental disorders complicating pregnancy, third trimester; F41.9 Anxiety disorder, unspecified
CPT/HCPCS: 36415; 85027; 86850; 86900; 86901; 59025; G0378; J2300; J2405

== ENCOUNTER 2024-01-12 21:55 | Inpatient (IN) | payer MEDICAID, SELFPAY ==
[2024-01-12] VITALS (29 sets, daily range): BP systolic 105–136; BP diastolic 62–78; PULSE 59–83; RESP 16; TEMP 36.6; O2SAT 98–100
--- NOTE | 2024-01-12 22:09 | HPE_ITS ---
Date of service: 01/12/24 Time of Service: 22:10 Assessment and Plan Assessment and plan (1) Normal labor: Status: Acute Assessment and plan: 1. will admit, keep type and screen from earlier today, she has blood bank band on, keep CBC from earlier 2. IV access and LR 3. Will notify engine repair supervisor to call STONE POLISHER MACHINE for epidural 4. Low risk for SD or PPH, expect NVD. OB-HPI Labor/Delivery History of Present Illness Reason for Visit: Labor at term Chief Complaint: Uterine Contractions. KAYKAY Calculator Estimated Delivery Date Method Current WG Current Estimate 01/15/24 LMP (Certain) 39w 4d Other Estimates 01/14/24 Ultrasound #1 39w 5d Comments: Sangeeta reports increase in contraction intensity and frequency this evening. She has had some bloody show. Denies LOF. Feels contractions are too strong and would like epidural for pain management. Had been admitted in the semaphore operator hours of today for prodromal labor, had IV Nubain with therapeutic rest. She had consult with STONE POLISHER MACHINE at that time. This is updated H&P. History of Present Expected Delivery Route/Plan - CNM FOB/boyfriend - Alexandre Correa (first child) BG GBS negative Specific Issues/Plan 1. cfDNA result is low risk x5, female, CF screen-neg, declines AFP. 2. PAP result nml, HPV+, neg genotype 16, 18/45, discuss w/pt, repeat 1 yr. 3. Low back pain - referral to [facility] PT 4. Tdap given 11/06/23 5. Heartburn - taking omeprazole PRN. Assessment: History Reviewed & Current Informed Consent Informed Consent: Augmentation of Labor (if needed after epidural) and Risk,Benefits,Alternatives Discussed Review of Systems All systems reviewed & are unremarkable except as noted in HPI and below Genitourinary Comments: bloody show Musculoskeletal Comments: regular painful uterine contractions PFS All Active Problems (Updated 01/12/24 @ 22:18 by Armida Savage CNM) Normal labor (Acute) Uterine contractions (Acute) Low back pain (Acute) (Acute) Anxiety (Chronic) Rx Propranolol and Zoloft effective. Medical History Encounter for screening for other viral diseases Positive test 05/13/23, Confirmed at [facility]. 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 Do you feel safe at home: Yes Do you feel safe in your relationship?: Yes History History 1 Para 0 Hx # Term Pregnancies 0 Multiple births 0 Hx # Pregnancies 0 Ectopic pregnancies 0 AB induced 0 Hx Number of Living Children 0 AB spontaneous 0 Meds Allergies and Home Medications Allergies Allergy/AdvReac Type Severity Reaction Status Date / Time No Known Allergies Allergy Verified 01/12/24 22:15 Home Medications ?Medication ?Instructions ?Recorded ?Confirmed ?Type vitamin #56-iron 35 mg 1 cap PO DAILY 05/13/23 01/12/24 History and 5 mg-folic acid 1 mg-dha capsule omeprazole 20 mg capsule,delayed 20 mg PO BID PRN acid reflux #90 09/25/23 01/12/24 Rx release caps sertraline 25 mg tablet (Zoloft) 37.5 mg (1.5 x 25 mg) PO DAILY #90 12/30/23 01/12/24 Rx tabs Exam Physical Exam Vital signs: Pulse BP 71 131/76 01/12/24 22:08 01/12/24 22:08 Vital Signs Reviewed: Yes Constitutional Constitutional: moderate distress (due to contraction pain but is working fairly well with them) and average body habitus Detailed Labor and Delivery Exam Dilation: 4 Effacement (%): 90 station: 0 Position: LOT Cervix position: mid Consistency: soft San Score: Cervical Points Exam 0 1 2 3 Dilation Closed 1-2cm 3-4 cm 5-6cm Effacement 0-30% 40-50% 60-70% 80% Consistency Firm Medium Soft Station -3 -2 -1,0 +1,+2 Position Posterior Mid Anterior SAN Score(Cervical Ripeness Score): 10 Amniotic Membrane Status: Intact Monitor Mode: External Contraction Frequency(min): 3 Contraction Duration(sec): 60 Contraction Intensity: Moderate/Strong Fetus A Heart Rate Baseline: 120 Monitor Accelerations: 10 X 10 Monitor Decelerations: None Variability: Moderate (6-25 BPM) Categories: Category I Est. Weight: 7 lb HEENT Exam HEENT Exam: Normal Neck Exam Neck Exam: Normal (visual exam) Chest/Brest/Axilla Exam Chest Exam: Normal Breast Exam Breast Exam: Not Done Respiratory Exam Respiratory Exam: Normal Cardiovascular Exam Cardiovascular Exam: Normal Abdominal Exam Abdominal Exam: Normal Rectal Exam Rectal Exam: Not Done Exam Exam: Normal Extremities Exam Extremities Exam: Normal Back/Spine/Pelvis Exam Back Exam: Normal Pelvis Adequate: Yes Skin Exam Skin Exam: Normal Neurological Exam Neurological Exam: Normal Psychiatric Exam Psychiatric Exam: Normal Results Results Group Beta Strep: Negative Blood Type: A+ Rubella Status: Immune Varicella Immunity: Immune Lab Results: Hep B and C neg, Syphilis neg, HIV neg, GC CT neg, CF neg, cfDNA low risk female, UDS negative, 1 hour glucose 84 Risk Assessment Risk for Shoulder Dystocia Historical/Initial OB: NEGATIVE FOR: Pelvic Abnormality, Pre- BMI>30, Previous Shoulder Dystocia or Previous Macrosomia 36 Weeks: NEGATIVE FOR: Current Gestational DM, EFW>4500gms or Maternal Weight Gain>40lbs 40 Weeks: NEGATIVE FOR: EFW> 4500 gms, Maternal Weight Gain >40lb or Post Dates Delivery Plan @ 36wks: NVD planned KH Delivery Plan @ 40 wks: NVD KH Risk for Pre-Eclampsia Date Initiated/Initials: not indicated, jk Yes, if one or more: NEGATIVE FOR: Hx Pre-E/Gest HTN, Chronic HTN, Multiple Gestation, Pre-gestational DM, Renal Disease, Systemic Lupus or APA Syndrome Yes, if 2 or more: POSITIVE FOR: Nulliparity; NEGATIVE FOR: Age>= 35 yrs, >10yr btwn pregnancies, BMI>30, ethinicty, Mother/Sister w/ Pre-E or Previous IUGR Risk for Post- Hemorrhage Initial: NEGATIVE FOR: Multiple Gestation, Previous PPH, Known Clotting Deficiency, Grand Multiparity or Anticoagulation 36 Weeks: NEGATIVE FOR: Anemia, hgb<10, Low platelets(thrombocytopenia), Gestational HTN or Pre-E, Polyhydraminios or EFW>4500gms 40 Weeks: NEGATIVE FOR: Anemia, hgb<10, Low platelets (thrombocytopenia), Gestation HTN or Pre-E, Polyhydraminios or EFW>4500gms At Risk?: No Counseled re: Active Management: Yes (accept active management of third stage. FLORES) Date/Initials: 12/17/23 Risks Reviewed Risks Reviewed Upon Admission: Yes (low risk for SD or PPH)
[2024-01-12 22:35] LABS: HCT 38.3 % (36.0-46.0); MCH 32.7 pg (27.0-33.0); MCHC 33.9 % (32.0-36.0); MCV 96 fL (80-95); MPV 11.6 fL (8.0-11.0); Platelet Count 210 10^3/uL (130-400); RBC 3.98 10^6/uL (3.93-5.22); RDW 12.5 % (11.7-14.6); RDW-SD 44.5 fL; WBC 16.92 10^3/uL (4.4-10.8)
[2024-01-12] MEDS: Lactated Ringers 1,000 ML 125 ML IV (22:49)
[2024-01-12] MEDS: Normal Saline Flush 10 ML SYR IVP (23:03)
[2024-01-12] MEDS: FentaNYL/ROPIvacaine 2 mcg/ml and 0.1% 200 ML CADD Cassette EP (23:17)
--- NOTE | 2024-01-12 23:41 | ANES.NEUR_ITS ---
Epidural/Spinal Catheter Date Performed: 01/12/24 Procedure Start: 23:04 Procedure Stop: 23:21 Requesting Provider: Armida Savage Procedure Location: Obstetrics Reason Performed: Labor Epidural Standard Monitors Applied: ECG, Blood Pressure, SpO2 and See EMR for corresponding vital signs Patient Position: Sitting Sedation Given (Indicate Dose Given): No Sedation given Patient Mental Status: Awake Sterility: Hand Hygiene, Surgical Cap, Surgical Mask, Sterile Gloves, Sterile Drape/Sheet and Chlorhexidine Procedure Location: L3-L4 Interspace Epidural Needle: Tuohy 18 Gauge Needle Length: 3.5 Inch Needle Approach: Midline Epidural Procedure: Skin Prepped, Sterile Drape Placed, 1% Lidocaine to skin and subcutaneous tissue with 25G needle, Tuohy Needle placed, WANDA to Saline Used, E pidural Catheter Placed, Negative Heme, Negative CSF Flow and Tuohy Needle Removed Catheter Placed?: Catheter Placed Test Dose (Indicate Dose Given): 3ml 1.5% Lidocaine with 1:200K Epinephrine Given and Negative Test Dose Loss of Resistance Depth (cm): 6 Catheter depth at skin (cm): 13 Dressing: Sorbaview Dressing Placed Epidural Provider Bolus (Indicate Dose Given): Total bolus dose given in 3-5 ml divided doses (First bolus 1 ml due to blood pressure, second bolus 2ml) and Total Ropivacaine 0.1% with Fentanyl 2mcg/ml Given from pump. (ml) Dose:: 3ml Additives (Indicate Dose Given ): None Infusion Medication: Medication Infusion Began Medication Infusion: Ropivacaine 0.1% with Fentanyl 2mcg/ml Maintenance Infusion Rate (ml/hour): 10 PCEA Bolus Dose (ml): 5 Block Le joshua: T10 Paresthesia: None Ultrasound: Not Used Number of Attempts (See previous attempts in note section): 1 Procedure Tolerated: No Complications and Patient tolerated well Procedure Outcome: Successful Procedure Comment:: Low bolus dose administered as patient starting with relative low blood pressure. Patient reports left leg numbness, but strong motor strength and stable vital signs. Patient rolled to right side and additional 2ml bolus administered. Patient is able to feel contractions, but reports improved pain control. VSS, see spinning frame changer. Performed By: Amy Padilla
--- NOTE | 2024-01-12 23:47 | W.PM.OBNL1 ---
Date of service: 01/12/24 Time of Service: 23:47 Informed Consent Informed Consent: Augmentation of Labor (if needed after epidural) and Risk,Benefits,Alternatives Discussed Pelvic Exam Dilation: 5.5 Effacement (%): 90 station: 0 Cervix Position: mid Consistency: soft Contractions Monitor Mode: External Contraction Frequency(min): 2-3 Contraction Duration(sec): 50-70 Intensity: Moderate/Strong Fetus A Monitor: External (US) Heart Rate Baseline: 120 Variability: Moderate (6-25 BPM) Categories: Category I Accelerations: Present Decelerations: None Amniotic Membrane Status: Intact (bulging ) Assessment and Plan Assessment and plan (1) Normal labor: Status: Acute Assessment and plan: 1. Plan to encourage rest for 2 hours and then reassess unless otherwise indicated by maternal / status 2. Patient voided immediately before epidural was placed Objective Abnormal lab results 01/12/24 Range/Units 22:14 WBC 16.92 H (4.4-10.8) 10^3/uL MCV 96 H (80-95) fL MPV 11.6 H (8.0-11.0) fL Temp Pulse Resp BP Pulse Ox 97.8 F 61 16 131/67 100 01/12/24 22:43 01/12/24 23:44 01/12/24 22:43 01/12/24 23:44 01/12/24 23:43 Laboratory Results WBC 16.92 10^3/uL (4.4-10.8) H 01/12/24 22:14 RBC 3.98 10^6/uL (3.93-5.22) 01/12/24 22:14 Hgb 13.0 g/dL (11.2-15.7) 01/12/24 22:14 Hct 38.3 % (36.0-46.0) 01/12/24 22:14 MCV 96 fL (80-95) H 01/12/24 22:14 MCH 32.7 pg (27.0-33.0) 01/12/24 22:14 MCHC 33.9 % (32.0-36.0) 01/12/24 22:14 RDW 12.5 % (11.7-14.6) 01/12/24 22:14 Plt Count 210 10^3/uL (130-400) 01/12/24 22:14 MPV 11.6 fL (8.0-11.0) H 01/12/24 22:14 ABO/Rh A Positive 01/12/24 22:14 Antibody Screen NEGATIVE 01/12/24 22:14 Vital Signs Reviewed: Yes Subjective Interval history since last seen: more comfortable since epidural, still aware of contractions but now able to breathe through them. Results Hemoglobin/Hematocrit: Hgb 13.0 g/dL (11.2-15.7) 01/12/24 22:14 Hct 38.3 % (36.0-46.0) 01/12/24 22:14 Abnormal Lab Findings: Abnormal Labs 01/12/24 22:14 WBC 16.92 H MCV 96 H MPV 11.6 H
[2024-01-12] MEDS: Pantoprazole 40 MG VIAL IVP (23:50)
[2024-01-13] VITALS (173 sets, daily range): BP systolic 107–139; BP diastolic 49–83; PULSE 56–108; RESP 15–18; TEMP 36.4–36.9; O2SAT 94–100
[2024-01-13] MEDS: Lactated Ringers 1,000 ML 125 ML IV (02:49)
--- NOTE | 2024-01-13 03:27 | W.PM.OBNL1 ---
Date of service: 01/13/24 Time of Service: 03:27 Informed Consent Informed Consent: Augmentation of Labor (if needed after epidural) and Risk,Benefits,Alternatives Discussed Pelvic Exam Dilation: 6 Effacement (%): 90 station: 0 Cervix Position: mid Consistency: soft Contractions Monitor Mode: External Contraction Frequency(min): 2-3 Contraction Duration(sec): 60 Intensity: Moderate/Strong Fetus A Monitor: External (US) Heart Rate Baseline: 120 Variability: Moderate (6-25 BPM) Categories: Category I Accelerations: 10 X 10 Decelerations: None Amniotic Membrane Status: Ruptured Rupture Method: Artifical Amniotic Fluid: Meconium (thin) Amount: moderate Date of Membrane Rupture: 01/13/24 Time of Membrane Rupture: 03:15 Assessment and Plan Assessment and plan (1) Normal labor: Status: Acute Assessment and plan: 1. AROM at 0315 for moderate amount of thin mec fluid, tolerated well. VE 6/90/0 but after AROM with head on cervix it can be stretched to 7. 2. Muñiz placed as patient is unable to void spontaneously 3. Will continue present management and reassess in 4 hours or as indicated by maternal / status. 4. Continue to expect NVD. KH Objective Abnormal lab results 01/12/24 Range/Units 22:14 WBC 16.92 H (4.4-10.8) 10^3/uL MCV 96 H (80-95) fL MPV 11.6 H (8.0-11.0) fL Temp Pulse Resp BP Pulse Ox 98.3 F 75 18 118/70 100 01/13/24 01:52 01/13/24 03:24 01/13/24 02:00 01/13/24 03:19 01/13/24 03:24 Laboratory Results WBC 16.92 10^3/uL (4.4-10.8) H 01/12/24 22:14 RBC 3.98 10^6/uL (3.93-5.22) 01/12/24 22:14 Hgb 13.0 g/dL (11.2-15.7) 01/12/24 22:14 Hct 38.3 % (36.0-46.0) 01/12/24 22:14 MCV 96 fL (80-95) H 01/12/24 22:14 MCH 32.7 pg (27.0-33.0) 01/12/24 22:14 MCHC 33.9 % (32.0-36.0) 01/12/24 22:14 RDW 12.5 % (11.7-14.6) 01/12/24 22:14 Plt Count 210 10^3/uL (130-400) 01/12/24 22:14 MPV 11.6 fL (8.0-11.0) H 01/12/24 22:14 ABO/Rh A Positive 01/12/24 22:14 Antibody Screen NEGATIVE 01/12/24 22:14 Vital Signs Reviewed: Yes Subjective Interval history since last seen: Sangeeta has been able to sleep well. She is very comfortable since epidural. She has not been able to void and agreed to muñiz catheter insertion. She also agrees to AROM to help advance labor. KH Results Hemoglobin/Hematocrit: Hgb 13.0 g/dL (11.2-15.7) 01/12/24 22:14 Hct 38.3 % (36.0-46.0) 01/12/24 22:14 Abnormal Lab Findings: Abnormal Labs 01/12/24 22:14 WBC 16.92 H MCV 96 H MPV 11.6 H
--- NOTE | 2024-01-13 07:23 | W.PM.OBNL1 ---
Date of service: 01/13/24 Time of Service: 07:23 Informed Consent Informed Consent: Augmentation of Labor (if needed after epidural) and Risk,Benefits,Alternatives Discussed Pelvic Exam Dilation: 10 Effacement (%): 100 station: +1 Contractions Monitor Mode: External Contraction Frequency(min): 2-3 Contraction Duration(sec): 60 Intensity: Moderate/Strong Fetus A Monitor: External (US) Heart Rate Baseline: 120 Variability: Moderate (6-25 BPM) Categories: Category I Assessment and Plan Assessment and plan (1) Normal labor: Status: Acute Assessment and plan: 1. Will begin pushing, expect NVD 2. Will notify pediatrics of meconium in fluid. KH Objective Abnormal lab results 01/12/24 Range/Units 22:14 WBC 16.92 H (4.4-10.8) 10^3/uL MCV 96 H (80-95) fL MPV 11.6 H (8.0-11.0) fL Temp Pulse Resp BP Pulse Ox 98.5 F 85 18 123/75 98 01/13/24 05:31 01/13/24 07:19 01/13/24 05:21 01/13/24 07:19 01/13/24 05:29 Laboratory Results WBC 16.92 10^3/uL (4.4-10.8) H 01/12/24 22:14 RBC 3.98 10^6/uL (3.93-5.22) 01/12/24 22:14 Hgb 13.0 g/dL (11.2-15.7) 01/12/24 22:14 Hct 38.3 % (36.0-46.0) 01/12/24 22:14 MCV 96 fL (80-95) H 01/12/24 22:14 MCH 32.7 pg (27.0-33.0) 01/12/24 22:14 MCHC 33.9 % (32.0-36.0) 01/12/24 22:14 RDW 12.5 % (11.7-14.6) 01/12/24 22:14 Plt Count 210 10^3/uL (130-400) 01/12/24 22:14 MPV 11.6 fL (8.0-11.0) H 01/12/24 22:14 ABO/Rh A Positive 01/12/24 22:14 Antibody Screen NEGATIVE 01/12/24 22:14 Vital Signs Reviewed: Yes Subjective Interval history since last seen: Feeling more abdominal pressure, denies rectal pressure. KH Results Hemoglobin/Hematocrit: Hgb 13.0 g/dL (11.2-15.7) 01/12/24 22:14 Hct 38.3 % (36.0-46.0) 01/12/24 22:14 Abnormal Lab Findings: Abnormal Labs 01/12/24 22:14 WBC 16.92 H MCV 96 H MPV 11.6 H
[2024-01-13] MEDS: Oxytocin/Normal Saline 30 UNIT/500 ML BAG 167 UNITS IV (09:40)
--- NOTE | 2024-01-13 10:06 | W.OBDELIVERY ---
Date of service: 01/13/24 Time of Service: 10:06 OB Labor/ Delivery Information Baby A Delivery Delivery Method: Spontaneaous Presentation: Cephalic Vertex Position: Right Occipital Anterior Amniotic Fluid: Meconium Estimated Blood Loss: 150ml Delivery Outcome: Liveborn Infant Complications: none Transferred: Remains with Mother Note: Sangeeta presented in early active labor in the evening of 01/12/24. She had CAT I tracing with baseline 120's and regular uterine contractions. VE on arrival was 4-5cm/90%/0 station. She requested and received an epidural for pain management that worked well for her. She continued to have CAT I tracing and had progressed to 5-6 cm at 0315 on 01/13/24 after resting. AROM for thin mec fluid was performed at that time and she continued to remain very comfortable and napped. FHR tracing remained 120's CAT I. She felt some increase in lower abdominal discomfort at 0715 and was found to be 10cm +1 at 0719. Second stage huddle was held at 0733 and documented, low risk for SD or PPH, plan IV pitocin per protocol after delivery of baby. She began to push shortly after that and used several positions to push. Second stage huddle was held again at 0833. With support and encouragement she delivered a live female over 1st degree vaginal laceration at 0936. Baby was placed skin to skin and had 9 and 9 apgars. Positive family bonding noted. Sangeeta delivered her placenta spontaenously at 0942, intact. Fundus firmed to U-1 with massage. Bi manual exam demonstrated firm lower uterine segment and no clots in vagina. 1st degree laceration was infiltrated with 1% lidocaine and repaired with 1 stitch of 4.0 vicryl. Sangeeta and her Alexandre plan to breast feed their daughter. They have not decided on her name yet. They are not certain of contraception plan. Expect normal PP course. Sponge, needle and instrument count correct. EBL 150cc. Providers Nurse Cement Truck Driver: Vanesa Kay Tongue And Quarter Stitcher: Amy Padilla Nurse: Vanesa Kay Nurse: Joya Schmidt Labor/Delivery Information Number of Babies in Womb: 1 Steroids Given: None Reason Steroids Not Administered: N/A Group Beta Strep: N/A Antibiotics Administered: No Rubella Status: Immune Blood Type: A+ Varicella Immunity: Immune Maternal Complications: None Shoulder Dystocia: No Stages of Labor Onset of Labor Date: 01/11/24 Onset of Labor Time: 06:00 Complete Dilatation Date: 01/13/24 Complete Dilatation Time: 07:19 Labor - Stage 1 Duration: 49 hours and 19 minutes ROM Baby A: 01/13/24 ROM Baby A: 03:15 ROM Total Time- Baby A: [id number] Delivery Date-Baby A: 01/13/24 Delivery Time-Baby A: 09:36 Labor Stage 2 Duration: 2 hours and 17 minutes Placenta Delivery Date-Baby A: 01/13/24 Placenta Delivery Time-Baby A: 09:42 Labor-Stage 3 Duration: 6 minutes Total Length of Labor-Baby A: 51 hours and 36 minutes Placenta Cultured: No Placenta Status: Delivered Baby A Infant Gender: Female Gestational Status: Term (39-41.6 wks) Gestational Age in Weeks/Days: 40 Weeks and 0 Days Score-1 Minute Interval(Baby A) Heart Rate-1 minute: 100 BPM or Greater Respiratory Effort- 1 minute: Spontaneous/Strong Cry Muscle Tone-1 minute: Active Movement Reflex Response-1 minute: Prompt Response Color-1 minute: Bluish Hands or Feet Total Score-1 minute: 9 Score-5 Minute Interval(Baby A) Heart Rate- 5 minute: 100 BPM or Greater Respiratory Effort-5 minute: Spontaneous/Strong Cry Muscle Tone-5 minute: Active Movement Reflex Response-5 minute: Prompt Response Color-5 minute: Bluish Hands or Feet Total Score- 5 minute: 9
[2024-01-13] MEDS: Acetaminophen 325 MG TAB 650 MG PO ×2 (10:20→21:36)
[2024-01-13] MEDS: Hamamelis Leaf/Glycerin 100 EACH BOX PR (10:20)
[2024-01-13] MEDS: Ibuprofen 600 MG TAB PO ×2 (10:20→21:36)
[2024-01-13] MEDS: Dibucaine 1% 28 GM TUBE TP (10:20)
--- NOTE | 2024-01-13 14:26 | W.ANESPOSTOP ---
Postoperative Evaluation Date, Time and Location Date Performed: 01/13/24 Time Performed: 14:26 Patient Location: Obstetrics Vital Signs Most Recent Imported Vital Signs: Most Recent Vital Signs Temp Pulse Resp BP Pulse Ox 36.6 C 66 15 115/49 L 99 01/13/24 12:30 01/13/24 12:30 01/13/24 12:30 01/13/24 12:30 01/13/24 12:30 Pain Score Most Recent Pain Score: Most Recent Pain Score Pain Level [Lower Abdomen] 1 01/13/24 12:30 Pain Level 0 01/13/24 10:45 Assessment Mental Status: Awake (Alert & Oriented to Patient Baseline) Airway and Respiratory Function: Patent airway with normal (patient baseline) respiratory exam Cardiovascular Function: Hemodynamically Stable Hydration Status: Adequately Hydrated Nausea & Vomiting: No Nausea or Vomiting Pain: Pt. Denies Any Pain Peripheral Nerve Block: Other (Epidural appropriately resolved, denied complaint, denied headache, denied backpain. Per RN catheter removed with tip intact.)
[2024-01-14 02:00] VITALS: BP 110/72; PULSE 73; RESP 18; TEMP 36.6
[2024-01-14] MEDS: Prenatal Multivitamin w/CA,FE TAB 1 TAB PO (08:12)
[2024-01-14] MEDS: Ibuprofen 600 MG TAB PO (08:12)
[2024-01-14] MEDS: Acetaminophen 325 MG TAB 650 MG PO (08:13)
--- NOTE | 2024-01-14 08:21 | W.PM.OBPNV1 ---
Date of service: 01/14/24 Time of Service: 08:00 Assessment and Plan Assessment and plan (1) care following vaginal delivery: Status: Acute Assessment and plan: 1. Normal PP course to date 2. Planning for discharge later today or tomorrow (2) Lactating mother: Status: Acute Assessment and plan: 1. Breast feeding going fairly well, has some difficulty with latch this morning and will work with RN to get good latch and positioning. Subjective Subjective Interval history: Feeling well. Having some latching challenges and will be working with RN at bedside for assistance with latch. baby status: Doing well and Strong Bonding Observed [place] feeding status: Exclusively breast feeding Exam Physical Exam Vital signs: Temp Pulse Resp BP Pulse Ox 98 F 73 18 110/72 100 01/14/24 02:00 01/14/24 02:00 01/14/24 02:00 01/14/24 02:00 01/13/24 16:15 Vital Signs Reviewed: Yes Constitutional Constitutional: no acute distress, average body habitus and cooperative HEENT Exam HEENT Exam: Normal Neck Exam Neck Exam: Normal (normal visual inspection) Respiratory Exam Respiratory Exam: Normal Cardiovascular Exam Cardiovascular Exam: Normal Abdominal Exam Abdomen: Other (normal exam) Fundal Exam Fundus: Below Umbilicus and Firm Comment: small lochia noted. Rectal Exam Rectal Exam: Not Done Exam Perineum: Normal and Repair Intact Extremities Exam Extremity Exam: Normal (denies calf tenderness) and Full ROM Back/Spine/Pelvis Exam Back Exam: Normal Skin Exam Skin Exam: Normal Neurological Exam Neurological Exam: Normal Psychiatric Exam Psychiatric Exam: Normal Results Hemoglobin/Hematocrit: Hgb 13.0 g/dL (11.2-15.7) 01/12/24 22:14 Hct 38.3 % (36.0-46.0) 01/12/24 22:14 Abnormal Lab Findings: Abnormal Labs 01/12/24 22:14 WBC 16.92 H MCV 96 H MPV 11.6 H
[2024-01-14 08:35] VITALS: BP 114/76; PULSE 70; RESP 16; TEMP 36.5
--- NOTE | 2024-01-14 14:00 | W.PM.OBDISCH ---
Date of service: 01/14/24 Time of Service: 14:00 DS: Diagnosis Discharge Diagnosis (1) care following vaginal delivery: Status: Acute Asessment and Plan: 1. Stable PP day 1, no concerns 2. Ibuprofen or Tylenol OTC for pain management at home 3. PP warning signs reviewed and how/when to seek care 4. RTO 2 and 6 weeks PP, considering condoms for contraception. (2) Lactating mother: Status: Acute Asessment and Plan: 1. Breast feeding is well established and consult with CLC done. 2. Follow up with pediatric provider as scheduled or prn. Discharge Plan Disposition Patient Disposition: Home Condition: Good Discharge Details Reason For Visit: Labor at term Admit Date/Time: 01/12/24 21:55 Admit Provider: Armida Savage Attending Provider: Armida Savage Primary Care Provider: Unknown,Unknown Hospital Course Hospital Course: Normal labor, epdiural for pain management and vaginal delivery of live female weighing 7lb8oz. Normal PP course. Breast feeding. Undecided on contraception. Home Meds and New Rx's Prescriptions: Continued omeprazole 20 mg capsule,delayed release(DR/EC) 20 mg PO BID PRN (Reason: acid reflux) Qty: 90 2RF PNV #[id number] acid-dha 35 mg iron-5 mg iron-1 mg capsule 1 cap PO DAILY sertraline [Zoloft] 25 mg tablet 37.5 mg PO DAILY Qty: 90 0RF Discharge Instructions Stand Alone Forms: BC Instructions, BC Post Vaginal Deliver Activity:: Activity as Tolerated Equipment/Supplies:: No Equipment Needed Diet:: As Tolerated Discharge Orders Discharge Orders: Discharge Order (Routine); Ordered 01/14/24 Ordered By: Armida Savage OB:DS Summary Summary Vaginal Delivery Method: Spontaneaous Episiotomy Description: None Laceration Description: None Laceration Extension: First Degree Contraception Discussed Contraception Discussed: Yes Contraceptive Plan: Foam/Condoms, [place] Gender-Baby A: Female ([place]) weight: 7 lb 8.284 oz Disposition of Baby A: Home Status at Discharge Functional status at discharge: independent ambulation Overall status at discharge: patient is back to baseline Mental Status: mental status grossly normal Speech and Movement: speech and movement normal Mood: congruent mood Affect: normal affect Time Spent with Patient providing and/or coordinating discharge services: Less than 30 minutes Quality:SDOH Health Related Social Needs: No Data to Display Exam Physical Exam Vital signs: Temp Pulse Resp BP Pulse Ox 97.7 F 70 16 114/76 100 01/14/24 08:35 01/14/24 08:35 01/14/24 08:35 01/14/24 08:35 01/13/24 16:15 Vital Signs Reviewed: Yes Constitutional Constitutional: no acute distress, average body habitus and cooperative HEENT Exam HEENT Exam: Normal Neck Exam Neck Exam: Normal (normal visual inspection) Respiratory Exam Respiratory Exam: Normal Cardiovascular Exam Cardiovascular Exam: Normal Abdominal Exam Abdomen: Other (normal exam) Fundal Exam Fundus: Below Umbilicus and Firm Comment: small lochia noted. KH Rectal Exam Rectal Exam: Not Done Exam Perineum: Intact and Normal Extremities Exam Extremity Exam: Normal (denies calf tenderness) and Full ROM Back/Spine/Pelvis Exam Back Exam: Normal Skin Exam Skin Exam: Normal Neurological Exam Neurological Exam: Normal Psychiatric Exam Psychiatric Exam: Normal PFSH All Active Problems (Updated 01/14/24 @ 08:23 by Armida Savage CNM) Lactating mother (Acute) care following vaginal delivery (Acute) Low back pain (Acute) (Acute) Anxiety (Chronic) Rx Propranolol and Zoloft effective. Medical History Encounter for screening for other viral diseases Positive test 05/13/23, Confirmed at [facility]. 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 Do you feel safe at home: Yes Do you feel safe in your relationship?: Yes History History 1 Para 0 Hx # Term Pregnancies 0 Multiple births 0 Hx # Pregnancies 0 Ectopic pregnancies 0 AB induced 0 Hx Number of Living Children 0 AB spontaneous 0 DS: Data Vitals/I&O Vitals and I&O: Vital Signs Temperature 97.7 F 01/14/24 08:35 Temperature Source Oral 01/14/24 08:35 Pulse 70 01/14/24 08:35 Pulse Rhythm Regular 01/14/24 08:37 Respiratory Rate 16 01/14/24 08:35 Respiratory Depth Normal 01/12/24 22:43 Blood Pressure 114/76 01/14/24 08:35 Blood Pressure Mean 88 01/14/24 08:35 Pulse Oximetry 100 01/13/24 16:15 Oxygen Delivery Method Room Air 01/12/24 22:43 Oxygen Flow Rate 0 01/12/24 22:43 Pain Level 4 01/13/24 21:36 Intake & Output 01/13/24 01/14/24 01/14/24 23:59 11:59 23:59 Intake Total 1500 / 2500 Balance 1499 Intake: IV 1500 / 2500 Other: Urine Color Pale Pale
== END 2024-01-14 16:00 | disposition home or self-care (01) | DRG 807 ==
PROVIDERS: Admitting Provider Advanced Practice Midwife; Visit Provider Advanced Practice Midwife
DX: O99.344 Other mental disorders complicating childbirth (principal); Z37.0 Single live birth; Z3A.39 39 weeks gestation of pregnancy; F41.9 Anxiety disorder, unspecified; O77.0 Labor and delivery complicated by meconium in amniotic fluid; O70.0 First degree perineal laceration during delivery; O99.62 Diseases of the digestive system complicating childbirth; R12 Heartburn
CPT/HCPCS: 36415; 85027; 86850; 86900; 86901; 59025; G0378; J2300; J2405; J2470